=== PATIENT | male | born 1965 | race Caucasian/White ===

== ENCOUNTER → 2024-05-01 14:39 | Outpatient (REF) | payer BC, SELFPAY ==
[2024-05-01 16:12] LABS: Amphetamines Negative (Negative); Barbiturates Negative (Negative); Benzodiazepines Positive (Negative); Buprenorphine Negative (Negative); Cocaine Negative (Negative); Marijuana Positive (Negative); Methadone Negative (Negative); Methamphetamines Negative (Negative); Opiates Negative (Negative); Phencyclidine Negative (Negative); Tricyclic Antidepressants Negative (Negative)
[2024-05-01 16:38] LABS: Fentanyl, Urine Negative (Negative)
== END ==
LOC: REG 14:39
PROVIDERS: ATTENDING PHYSICIAN Internal Medicine
DX: M54.50 Low back pain, unspecified (principal); G89.29 Other chronic pain; M50.90 Cervical disc disorder, unspecified, unspecified cervical region
CPT/HCPCS: 80306; 80307